=== PATIENT | female | born 1980 | race African-American/Black ===

== ENCOUNTER 2021-08-26 16:47 | Emergency (ER) | payer OTHER ==
[~2021-08-26] VITALS: Ht 170.2 cm; Wt 79.4 kg
[~2021-08-26 16:47] MED LIST: CRUTCHES MISCELL; CYCLOBENZAPRINE5 MG PO; NORCO 10-325 T1 EACH PO; NORCO 5-325 TA1 EACH PO; PENICILLIN V P500 MG PO; PERCOCET 5-3251 EACH PO
[2021-08-26] MEDS ORDERED: NORCO5 PO (18:18)
== END 2021-08-26 18:32 | disposition home or self-care (01) ==
LOC: ER 16:47
DX: S92.511A Displaced fracture of proximal phalanx of right lesser toe(s), initial encounter for closed fracture (principal); F12.90 Cannabis use, unspecified, uncomplicated; Z79.899 Other long term (current) drug therapy; W22.8XXA Striking against or struck by other objects, initial encounter; Y93.89 Activity, other specified; Y92.89 Other specified places as the place of occurrence of the external cause; Y99.8 Other external cause status